=== PATIENT | female | born 1940 | race Caucasian/White ===

== ENCOUNTER 2022-08-08 08:03 | Emergency (ER) | payer MEDICARE, SELFPAY ==
[2022-08-08 08:05] VITALS: BP 140/113; PULSE 62; RESP 18; TEMP 37.4; O2SAT 100
--- NOTE | 2022-08-08 08:23 | ED.GENADULT ---
HPI - General Adult General Chief complaint: Nausea/Vomiting/Diarrhea Stated complaint: n/v Time Seen by Provider: 08/08/22 08:09 History of Present Illness HPI narrative: 81-year-old female presenting to the emergency department for evaluation nausea vomiting diarrhea. Patient states last night she went to a [employer] party and at approximately midnight she started having some diarrhea. Patient reports did have a near syncopal episode but denies any falls or injuries. Patient states this morning she was having a lot of nausea and vomiting, her was concerned and so they decided to call an ambulance. In route patient was treated with 4 mg of IV Zofran. Upon arrival to the emergency department patient states she does feel improved. Patient's primary complaint prior to arrival was nausea and diarrhea. Upon arrival to emergency room patient states that the nausea is resolved. Patient states she does have a mild headache at this time. Patient states that is not the worst at her life and states it is not significant. Patient does have a prior surgical history of appendectomy and a tubal. Related Data Allergies Allergy/AdvReac Type Severity Reaction Status Date / Time No Known Allergies Allergy Mild Verified 08/08/22 08:14 Review of Systems Review of Systems: CONSTITUTIONAL: Denies fever, chills, or sweats. EYES: Denies visual changes, redness, or discharge. ENT: Denies rhinorrhea, congestion, sore throat, or otalgia. CARDIOVASCULAR: Denies chest pain, palpitations, or edema. RESPIRATORY: Denies cough or dyspnea. GASTROINTESTINAL: See HPI GENITOURINARY: Denies dysuria or hematuria. SKIN: Denies rash or itching. MUSCULOSKELETAL: Denies back pain, joint pain, or myalgia. NEUROLOGIC: See HPI PSYCHIATRIC: Denies anxiety or depression. Exam Narrative: APPEARANCE: Well appearing, no pain, no distress, well-nourished. HEAD: normocephalic, atraumatic. EYES: PERRLA/EOMI, conjunctivae clear. NOSE: Normal no drainage NECK: Supple. No adenopathy, no masses. RESPIRATORY: Airway patent, respirations nonlabored. Clear to auscultation bilaterally, no rales, rhonchi, wheezing. CARDIOVASCULAR: Regular rate and rhythm without murmurs rubs or gallops. ABDOMINAL: Soft, nontender, nondistended, normal bowel sounds MUSCULOSKELETAL: Moves all extremities. Strength/ROM intact, No edema, No calf tenderness. NEURO: Alert. Cranial nerves II through XII intact. Good gait. Good coordination SKIN: Warm, dry. Normal Color Course Course Emergency Course: Patient appears to be in no distress. Patient has no abdominal tenderness to palpation. Patient will be treated with additional IV fluids for dehydration and baseline labs will be checked. Patient denies any abdominal pain at this time. Patient reports she does feel improved with treatment. Patient denies any current nausea. Patient denies any associate abdominal pain. Patient was complaining of a headache this was treated with Tylenol and patient reports it has resolved. On reexamination patient has no tenderness to palpation. Patient was updated on the results of her work-up and was encouraged with close follow-up with a primary care physician. Patient was also educated on reasons to return to the emergency room. All questions and concerns were addressed. Vital Signs Vital signs: Vital Signs Temperature 99.3 F 08/08/22 08:05 Pulse Rate 62 08/08/22 08:05 Respiratory Rate 18 08/08/22 08:05 Blood Pressure 140/113 H 08/08/22 08:05 Pulse Oximetry 100 08/08/22 08:05 Oxygen Delivery Room Air 08/08/22 08:05 Temperature 99.3 F 08/08/22 08:05 Pulse Rate 66 08/08/22 13:47 Respiratory Rate 18 08/08/22 13:47 Blood Pressure 130/79 08/08/22 13:47 Pulse Oximetry 98 08/08/22 13:47 Oxygen Delivery Room Air 08/08/22 08:05 Medical Decision Making Vital Signs Vital Signs: Vital Signs Temperature 99.3 F 08/08/22 08:05 Pulse Rate 62 08/08/22 08:05
[2022-08-08] MEDS: SODIUM CHLORIDE 0.9% IV 1,000 ML 500 ML IV CONT (09:08)
[2022-08-08 09:18] LABS: Appearance Urine Clear (Clear); Bilirubin Urine Negative (Negative); Blood Urine Trace-intact (Negative); Color Urine Yellow (Yellow); Glucose Urine UA Negative (Negative); Ketones Urine 1+ mg/dL (Negative); Leukocyte Esterase Ur Negative LEU/UL (Negative); Nitrate Urine Negative (Negative); Protein Urine Negative (Negative); Specific Grav Ur 1.015 (1.001-1.035)
[2022-08-08 09:20] LABS: Basophils Absolute Auto 0.1 K/mm3 (0.0-0.1); Basophils Percent Auto 0.4 % (0.2-1.2); Eosinophils Absolute Auto 0.3 K/mm3 (0-0.3); Eosinophils Percent Auto 2.5 % (0-4.4); Hematocrit 43.1 % (37.0-47.0); Hemoglobin 14.4 g/dL (12.0-15.0); Immature Granulocyte Absolute 0.04 K/mm3 (0.00-0.031); Immature Granulocyte Percent A 0.3 % (0-0.5); Immature Platelet Fraction Pct 5.4 % (0.9-11.2); Lymphocytes Absolute Auto 0.83 K/mm3 (0.9-3.2); Lymphocytes Percent Auto 6.9 % (18.3-44.2); Mean Corpuscular HGB Conc 33.4 g/dl (32-36); Mean Corpuscular Volume 92.9 fl (80-100); Monocytes Absolute Auto 0.5 K/mm3 (0.1-0.6); Monocytes Percent Auto 4.4 % (2.6-8.5); Neutrophils Absolute Auto 10.3 K/mm3 (1.3-6.7); Neutrophils Percent Auto 85.5 % (45.5-73.1); Red Blood Count 4.64 M/mm3 (4.2-5.4); Red Cell Distribution Width 12.7 % (11.5-14.5)
[2022-08-08 09:28] LABS: Mucus Urine Rare /lpf; Squamous Epithelial Cell Urine Rare /hpf (Few)
[2022-08-08 09:30] LABS: Add Urine Microscopic? YES
[2022-08-08 09:34] LABS: Alanine Aminotransferase 53 U/L (6-35); Albumin Level 4.7 g/dL (3.5-5.1); Alkaline Phosphatase 134 U/L (38-126); Anion Gap 6 mmol/L (8-16); Aspartate Amino Transferase 72 U/L (14-36); Bilirubin,Total 1.4 mg/dL (0.2-1.3); Blood Urea Nitrogen 25 mg/dL (7-17); Calcium 9.3 mg/dL (8.4-10.2); Carbon Dioxide 27 mmol/L (22-30); Chloride 106 mmol/L (98-107); Estimated CRCL calculation 57 ml/min; Estimated Glomerular Filt Rate > 60; Glucose 116 mg/dL (65-110); Potassium 4.8 mmol/L (3.4-5.0); Sodium 139 mmol/L (137-145)
[2022-08-08 09:50] VITALS: BP 170/65; PULSE 65; RESP 18; O2SAT 99
[2022-08-08] MEDS: ONDANSETRON INJ 4 MG/2 ML VIAL IV PUSH (09:51)
[2022-08-08 13:47] VITALS: BP 130/79; PULSE 66; RESP 18; O2SAT 98
== END 2022-08-08 14:10 | disposition home or self-care (01) ==
PROVIDERS: Emergency Provider Emergency Medicine
DX: R11.2 Nausea with vomiting, unspecified (principal); R51.9 Headache, unspecified
CPT/HCPCS: 36415; 80053; 81001; 85025; 85055; 96365; 96366; 96375; 99284; J0131; J2405; J7030